=== PATIENT | female | born 1985 | race Hispanic/Latino ===

== ENCOUNTER → 2019-09-09 | Day surgery (SDC) | payer BC ==
[~2019-09-09] MED LIST: ANUSOL-HC25 MG RC; BISACODYL5 MG PO; CEFUROXIME500 MG PO; FENTANYL CITRATE/PF 100MCG/2 ML INJ ONE; HYOSCYAMINE 0.125 MG TAB ONE; MIDAZOLAM HCL 2 MG/2 ML VIAL ONE; PANTOPRAZOLE SO40 MG PO; POLYETHYLENE GL17 GM PO; PROPOFOL IV EMULSION 10 MG/ML 50 ML VIAL ONE; PSYLLIUM FIBE0.52 GM PO
--- OUTSIDE RECORDS SUMMARY | 2019-09-09 08:52 | XMS REPORT ---
Author Author [facility] Organization [facility] Address Unknown Phone Unavailable Care Team Providers Care Fountain Waitress/Waiter Name Role Phone Unavailable Unavailable Problems This patient has no known problems. Allergies, Adverse Reactions, Alerts This patient has no known allergies or adverse reactions. Medications This patient has no known medications. Encounters Start Date/Time End Date/Time Encounter Type Admission Type Attending [facility] Care Department Encounter ID 2019-02-06 07:26:06 2019-02-06 07:26:06 Emergency [facility] [id number] 2018-04-07 13:00:02 2018-04-07 13:00:02 Emergency [facility] [id number] 2018-04-07 07:39:58 2018-04-07 07:39:58 Emergency [facility] [id number] 2018-02-11 00:00:00 2018-02-11 00:00:00 Outpatient [facility] [id number] 2018-01-06 00:00:00 2018-01-06 00:00:00 Outpatient [facility] [id number] 2017-12-10 13:40:35 2017-12-10 13:40:35 Outpatient [facility] [id number] 2017-12-06 12:01:53 2017-12-06 12:01:53 Outpatient [facility] [id number] 2017-11-04 08:23:42 2017-11-04 08:23:42 Outpatient [facility] [id number] 2017-10-07 15:11:06 2017-10-07 15:11:06 Outpatient [facility] [id number] 2017-09-12 16:08:05 2017-09-12 16:08:05 Outpatient [facility] [id number] 2017-08-23 15:16:05 2017-08-23 15:16:05 Outpatient [facility] [id number] 2017-08-16 15:51:48 2017-08-16 15:51:48 Outpatient [facility] [id number] 2017-08-16 15:39:36 2017-08-16 15:39:36 Outpatient [facility] [id number] 2017-08-13 00:00:00 2017-08-13 00:00:00 Outpatient [facility] [id number] 2017-08-09 10:44:34 2017-08-09 10:44:34 Outpatient [facility] [id number] 2017-07-31 09:05:21 2017-07-31 09:05:21 Outpatient [facility] [id number] 2017-07-03 18:36:53 2017-07-03 18:36:53 Outpatient [facility] [id number] 2017-06-10 11:52:10 2017-06-10 11:52:10 Outpatient [facility] [id number] 2017-06-06 16:02:42 2017-06-06 16:02:42 Outpatient [facility] [id number] 2017-05-10 00:00:00 2017-05-10 00:00:00 Outpatient [facility] [id number] 2017-04-01 00:00:00 2017-04-01 00:00:00 Outpatient [facility] [id number] 2017-03-27 12:27:32 2017-03-27 12:27:32 Outpatient [facility] [id number] 2017-03-27 10:25:58 2017-03-27 10:25:58 Outpatient [facility] [id number]
[2019-09-09 12:35] VITALS: BP 85/47
--- NOTE | 2019-09-09 20:29 | Operative Report ---
DATE OF PROCEDURE: 09/09/2019 SURGEON: Yon Zafar MD PROCEDURES: EGD with biopsies and colonoscopy with biopsy. INDICATION FOR EGD: Heartburn, melena. INDICATIONS FOR COLONOSCOPY: Bright red blood per rectum, rectal pain. MEDICATIONS: The patient was done under MAC, please see anesthesiologist's note. PROCEDURE IN DETAIL: With the patient in the left lateral decubitus position, a flexible fiberoptic Olympus gastroscope was introduced into the esophagus under direct visualization without any difficulty. There was some patchy erythema noted in the distal esophagus. The scope was then advanced with ease into the stomach. Mucosa overlying the antrum and the body revealed some patchy erythema and low-grade to moderate edema, and biopsies were obtained and sent to stain for H. pylori. Pylorus was of normal contour and shape, was intubated with ease and the scope was advanced all the way to the second portion of the duodenum. The scope was then withdrawn slowly, mucosa overlying the proximal second portion and duodenal bulb appeared to be within normal limits. Biopsies were obtained to rule out sprue. The scope was then withdrawn back into the stomach and retroflexed, mucosa overlying the fundus and the cardia appeared to be within normal limits. The scope was then straightened out, it was subsequently withdrawn, and the patient tolerated the procedure well. IMPRESSION: 1. Distal esophagitis. 2. Gastritis, biopsied, biopsies sent to stain for Helicobacter pylori. 3. Rule out sprue. PLAN: Follow up histology. Initiate Protonix 40 mg 1 p.o. q.a.m. before meals. The patient was then turned around and after adequate lubrication of the anal canal, the flexible fiberoptic Olympus colonoscope was inserted into the rectum with ease and advanced all the way to the cecum. The scope was then withdrawn slowly. Mucosa overlying the cecum, ascending colon, transverse colon, descending colon, and sigmoid colon grossly appeared to be within normal limits. A minute polyp was noted in the distal rectum and that was removed per hot biopsy forceps. The scope was then retroflexed into the distal rectum and small internal hemorrhoids were noted, none of which was actively bleeding. The scope was then straightened out, it was subsequently withdrawn, and the patient tolerated the procedure well. Of note, the patient was suboptimally prepped with moderate amount of scattered stools in the colon. IMPRESSION: 1. Suboptimal prep. 2. Rectal ulcer, approximately 6 mm in size, biopsied. 3. Internal hemorrhoids, none actively bleeding. 4. Resolving thrombosed external hemorrhoid. PLAN: Follow up histology. Initiate VSL#3 one p.o. b.i.d. Anucort-HC suppository b.i.d. x10 days and p.r.n. Timing of followup colonoscopy pending pathology report. Yon Zafar MD [facility] [place]/MODL /[id number]
== END | disposition home or self-care (01) ==
LOC: OR 08:50
PROVIDERS: ATTEND Internal Medicine Gastroenterology
DX: K20.9 Esophagitis, unspecified (principal); K29.70 Gastritis, unspecified, without bleeding; K62.6 Ulcer of anus and rectum; K64.8 Other hemorrhoids; K64.5 Perianal venous thrombosis; K29.50 Unspecified chronic gastritis without bleeding
CPT/HCPCS: 43239; 45380; 81025; J2250; J2704; J3010; 45378

== ENCOUNTER 2022-10-19 09:07 | Emergency (ER) | payer BC ==
[~2022-10-19] VITALS: Ht 142.2 cm; Wt 42.2 kg
[~2022-10-19 09:07] MED LIST changes: -FENTANYL CITRATE/PF 100MCG/2 ML INJ ONE; -HYOSCYAMINE 0.125 MG TAB ONE; -MIDAZOLAM HCL 2 MG/2 ML VIAL ONE; -PROPOFOL IV EMULSION 10 MG/ML 50 ML VIAL ONE
[2022-10-19] MEDS ORDERED: SODIUM CHLORIDE 0.9% 1000ML 1,000 ML IV STA (09:35)
[2022-10-19 09:40] LABS: BASOPHILS # (AUTO) 0.1 (0.0-0.1); EOSINOPHILS # (AUTO) 0.1 (0.0-0.4); EOSINOPHILS % 1.5 % (0.0-6.0); HEMATOCRIT 32.1 % (34.2-44.1); LYMPHOCYTES # (AUTO) 1.1 (1.0-3.2); LYMPHOCYTES % 23.9 % (18.0-39.1); MEAN CORPUSCULAR HEMOGLOBIN 20.5 pg (28-32); MEAN CORPUSCULAR VOLUME 73.3 fL (81-99); MONOCYTES # (AUTO) 0.3 (0.2-0.8); MONOCYTES % 6.1 % (4.4-11.3); NEUTROPHILS # (AUTO) 3.2 (2.1-6.9); NEUTROPHILS % 67.1 % (38.7-80.0); PLATELET COUNT 224 x10e3/uL (140-360); RED BLOOD COUNT 4.38 x10e6/uL (3.6-5.1); RED CELL DISTRIBUTION WIDTH 22.4 % (11.7-14.4)
[2022-10-19 09:51] LABS: CLARITY,URINE SL CLOUDY (CLEAR); COLOR,URINE YELLOW (YELLOW); KETONES,URINE NEGATIVE (NEGATIVE); LEUKOCYTE ESTERASE ,URINE SMALL (NEGATIVE); NITRITE,URINE NEGATIVE (NEGATIVE); PROTEIN,URINE DIPSTICK NEGATIVE (NEGATIVE); URINE UROBILINOGEN 0.2 mg/dL (0.2 - 1)
[2022-10-19 09:58] LABS: ALBUMIN 4.1 g/dL (3.5-5.0); ALBUMIN/GLOBULIN RATIO 1.1 (0.8-2.0); ANION GAP 13.9 mmol/L (8-16); CALCIUM 8.9 mg/dL (8.4-10.2); CREATININE, SERUM 0.58 mg/dL (0.57-1.11); POTASSIUM 3.9 mmol/L (3.5-5.1)
[2022-10-19 09:59] LABS: LIPASE 8 U/L (8-78)
[2022-10-19 10:32] LABS: BACTERIA,URINE FEW /HPF; EPITHELIAL CELLS,URINE FEW /LPF; RBC,URINE 0-5 /HPF (0-5)
[2022-10-19] MEDS ORDERED: ONDANSETRON HCL INJ 2MG/ML 2ML 2 MG/ML VIAL IV STA (10:32)
[2022-10-19] MEDS ORDERED: KETOROLAC TROMETHAMINE 30 MG/ML VIAL IV STA (10:32)
[2022-10-19] MEDS ORDERED: CEFTRIAXONE 1 GM VIAL ONE (10:38)
[2022-10-19] MEDS ORDERED: CEFDINIR300 MG PO (11:53)
[2022-10-19 12:35] VITALS: BP 92/55; PULSE 57; RESP 18; TEMP 98; O2SAT 100
== END 2022-10-19 12:38 | disposition home or self-care (01) ==
LOC: ER 09:38
DX: R10.11 Right upper quadrant pain (principal); N83.8 Other noninflammatory disorders of ovary, fallopian tube and broad ligament; K57.90 Diverticulosis of intestine, part unspecified, without perforation or abscess without bleeding
CPT/HCPCS: 36415; 74176; 80053; 81001; 83690; 84484; 84702; 85025; 87086; 93005; 99284; J0696; J1885; J2405; J7030